=== PATIENT | female | born 1935 | race African-American/Black ===

== ENCOUNTER 2025-02-20 11:27 | Inpatient (IN) | payer MEDICARE, MEDICAID ==
[~2025-02-20] VITALS: Ht 165.1 cm; Wt 56.7 kg
[~2025-02-20 11:27] MED LIST: BC POWDER
[2025-02-20 11:39] VITALS: O2SAT 99
[2025-02-20 12:45] LABS: BASOPHILS % 0.7 % (0.0-2.0); EOSINOPHILS % 3.0 % (0.0-5.0); HEMATOCRIT. 30.8 % (36.0-48.0); HEMOGLOBIN. 10.1 g/dL (12.0-16.0); LYMPHOCYTES % 18.3 % (20.0-50.0); MEAN PLATELET VOLUME 9.7 fl (7.4-10.4); MONOCYTES % 9.1 % (2.0-8.0); NEUTROPHILS % 68.9 % (40.0-76.0); PLATELET 203 x1000/uL (130-400); RED BLOOD CELL COUNT 3.40 mill/uL (4.2-5.4); RED CELL DISTRIBUTION WIDTH 15.1 % (11.6-14.6)
[2025-02-20 13:02] LABS: CREATININE 0.9 mg/dL (0.6-1.0); UREA NITROGEN BLOOD 18 mg/dL (9-23)
[2025-02-20 13:49] LABS: CREATININE 0.9 mg/dL (0.6-1.0); UREA NITROGEN BLOOD 18 mg/dL (9-23)
[2025-02-20 14:27] LABS: CLARITY URINE CLOUDY (CLEAR); COLOR URINE BLOODY (YELLOW)
[2025-02-20 14:40] LABS: PH URINE 6.5 (4.5-8.0); SPECIFIC GRAVITY URINE 1.022 (1.005-1.030)
[2025-02-20 14:41] LABS: GLUCOSE URINE NEGATIVE (NEGATIVE); KETONES URINE NEGATIVE (NEGATIVE); LEUKOCYTE ESTERASE URINE TRACE (NEGATIVE); NITRITE URINE NEGATIVE (NEGATIVE); OCCULT BLOOD URINE 3+ (NEGATIVE); PROTEIN URINE 3+ (NEGATIVE); UROBILINOGEN URINE 1.0 E.U./dL (0.2-1.0)
[2025-02-20 15:06] LABS: BACTERIA URINE NONE SEEN; RBC URINE TNTC /hpf (0-2); SQUAMOUS EPITHELIAL CELL URINE NONE SEEN /lpf (RARE/1+)
[2025-02-20 15:30] VITALS: BP 168/88; PULSE 71; RESP 18; RESP 20; TEMP 36.7; TEMP 36.7516; O2SAT 100
[2025-02-20] MEDS ORDERED: ZOLPIDEM TARTRATE 5MG TABLET PO PRN (17:45)
[2025-02-20] MEDS ORDERED: ACETAMINOPHEN 325MG TABLET PO PRN (17:45)
[2025-02-20] MEDS ORDERED: MAGNESIUM/ALUMINUM HYDROXIDE/SIMETHICONE 30ML UDC PO PRN (17:45)
[2025-02-20] MEDS: CLONIDINE 0.1MG TABLET PO PRN (18:16)
[2025-02-20] MEDS: AMLODIPINE 10MG TABLET PO SCH (18:16)
[2025-02-20 20:00] VITALS: PULSE 57; RESP 19; TEMP 36.4; O2SAT 98
[2025-02-20] MEDS: PIPERACILLIN/TAZO 3.375G/50ML 50 ML IV SCH (21:31)
[2025-02-21] VITALS: BP 153/73; PULSE 77; RESP 18; TEMP 34.1; O2SAT 98
[2025-02-21 04:00] VITALS: BP 164/61; PULSE 67; RESP 12; TEMP 36.3; O2SAT 98
[2025-02-21] MEDS: PANTOPRAZOLE 40MG DR TABLET PO SCH (06:25)
[2025-02-21 08:00] VITALS: BP 146/68; PULSE 66; RESP 18; TEMP 36.2; O2SAT 100
[2025-02-21 08:46] LABS: CREATININE 0.9 mg/dL (0.6-1.0)
[2025-02-21 08:47] LABS: UREA NITROGEN BLOOD 17 mg/dL (9-23)
[2025-02-21 08:49] LABS: BASOPHILS % 0.3 % (0.0-2.0); EOSINOPHILS % 0.8 % (0.0-5.0); HEMATOCRIT. 33.7 % (36.0-48.0); HEMOGLOBIN. 10.8 g/dL (12.0-16.0); LYMPHOCYTES % 13.2 % (20.0-50.0); MEAN PLATELET VOLUME 9.3 fl (7.4-10.4); MONOCYTES % 7.6 % (2.0-8.0); NEUTROPHILS % 78.1 % (40.0-76.0); PLATELET 190 x1000/uL (130-400); RED BLOOD CELL COUNT 3.62 mill/uL (4.2-5.4); RED CELL DISTRIBUTION WIDTH 15.4 % (11.6-14.6)
[2025-02-21 12:00] VITALS: BP 143/71; PULSE 69; RESP 15; TEMP 36.6; O2SAT 100
[2025-02-21 16:00] VITALS: BP 155/81; PULSE 72; RESP 17; TEMP 36.7; O2SAT 98
== END 2025-02-21 18:22 | disposition short-term general hospital (02) | DRG 690 ==
LOC: ER 11:27 → 8WST 13:53 → EDBEDREQ 13:54 → EDBEDREQTM 13:54
PROVIDERS: ADMIT Internal Medicine Pulmonary Disease; ATTEND Internal Medicine Pulmonary Disease
DX: N13.6 Pyonephrosis (principal); F03.90 Unspecified dementia, unspecified severity, without behavioral disturbance, psychotic disturbance, mood disturbance, and anxiety; N28.89 Other specified disorders of kidney and ureter; D64.9 Anemia, unspecified; I11.9 Hypertensive heart disease without heart failure; K80.20 Calculus of gallbladder without cholecystitis without obstruction; N28.1 Cyst of kidney, acquired; Z85.3 Personal history of malignant neoplasm of breast; Z79.899 Other long term (current) drug therapy
CPT/HCPCS: 36415; 74176; 80048; 81003; 85025; 86850; 86900; 99285; J2543